=== PATIENT | female | born 1990 | race Caucasian/White ===

== ENCOUNTER 2018-05-16 18:07 | Inpatient (IN) | payer OTHER, MEDICAID ==
[~2018-05-16] VITALS: Ht 149.9 cm; Wt 75.9 kg
[2018-05-16] MEDS ORDERED: PLEASE ENTER ALLERGIES MC SCH (20:00)
[2018-05-16] MEDS ORDERED: PLEASE ENTER HEIGHT AND WEIGHT MC SCH (20:00)
[2018-05-16 20:15] LABS: CREATININE,URINE RANDOM 18.5 mg/dL
[2018-05-16] MEDS ORDERED: ACETAMINOPHEN 325 MG TABLET ONE (20:47)
[2018-05-16] MEDS: ACETAMINOPHEN 325 MG TABLET PO PRN (20:52)
[2018-05-16] MEDS ORDERED: LABETALOL 200 MG TABLET ONE (22:25)
[2018-05-16] MEDS ORDERED: FAMOTIDINE 20 MG TABLET ONE (22:25)
[2018-05-16] MEDS: FAMOTIDINE 20 MG TABLET PO SCH (22:30)
[2018-05-16] MEDS: LABETALOL 200 MG TABLET PO SCH (22:30)
[2018-05-17] MEDS: LACTATED RINGERS 1,000 ML IV PRN ×2 (01:52→15:19)
[2018-05-17] MEDS ORDERED: MAGNESIUM SULF. PMX 20GM/500ML 500 ML IV ONE ×3 (02:42→13:13)
[2018-05-17] MEDS: MAGNESIUM SULF. PMX 20GM/500ML 500 ML IV SCH ×3 (02:47→18:00)
[2018-05-17 03:14] LABS: ALANINE AMINOTRANSFERASE 10 U/L (12-78); ALBUMIN 2.3 g/dL (3.4-5.0); ANION GAP 11 mmol/L (5-15); CALCIUM 7.3 mg/dL (8.5-10.1); CHLORIDE 105 mmol/L (98-107); CREATININE 0.64 mg/dL (0.55-1.02)
[2018-05-17 03:17] LABS: ALKALINE PHOSPHATASE 171 U/L (45-117); BILIRUBIN,TOTAL 0.2 mg/dL (0.2-1.0); TOTAL PROTEIN 6.5 g/dL (6.4-8.2)
[2018-05-17 04:03] LABS: BASOPHILS # (AUTO) 0.11 x10^3/uL (0-0.1); BASOPHILS % (AUTO) 1 % (0-1); EOSINOPHILS # (AUTO) 0.05 x10^3/uL (0-0.4); EOSINOPHILS % (AUTO) 0 % (1-7); LYMPHOCYTES # (AUTO) 1.49 x10^3/uL (1-3.4); LYMPHOCYTES % (AUTO) 9 % (22-44); MD SCAN; MEAN CORPUSCULAR HEMOGLOBIN 29.6 pg (27.0-34.8); MEAN CORPUSCULAR HGB CONC 33.1 g/dL (32.4-35.8); MEAN CORPUSCULAR VOLUME 89.4 fL (80-100); MEAN PLATELET VOLUME 12.9 fL (7.4-10.4); MONOCYTES # (AUTO) 0.15 x10^3/uL (0.2-0.8); MONOCYTES % (AUTO) 1 % (2-9); NEUTROPHILS # (AUTO) 14.89 x10^3/uL (1.8-6.8); NEUTROPHILS % (AUTO) 89 % (42-75); PLATELET COUNT 230 x10^3/uL (130-400); RED CELL DISTRIBUTION WIDTH 14.6 % (9.6-15.2)
[2018-05-17 07:15] VITALS: BP 149/86
[2018-05-17] MEDS ORDERED: LABETALOL 200 MG TABLET ONE (08:35)
[2018-05-17] MEDS ORDERED: FAMOTIDINE 20 MG TABLET ONE ×2 (08:37→21:06)
[2018-05-17] MEDS: FAMOTIDINE 20 MG TABLET PO SCH ×2 (08:41→21:08)
[2018-05-17] MEDS: LABETALOL 200 MG TABLET PO SCH (09:42)
[2018-05-17] MEDS ORDERED: [UNRECOGNIZED DRUG - OTHER] IM SCH (12:00)
[2018-05-17] MEDS ORDERED: BETAMETHASONE 6 MG/ML, 5ML IM ONE (16:18)
[2018-05-17] MEDS ORDERED: BETAMETHASONE 6 MG/ML, 5ML IM SCH (16:30)
[2018-05-17] MEDS ORDERED: [UNRECOGNIZED DRUG - OTHER] IM SCH (17:00)
[2018-05-17] MEDS ORDERED: MAGNESIUM SULF. PMX 20GM/500ML 500 ML IV SCH (19:32)
[2018-05-17] MEDS ORDERED: ZOLPIDEM 5MG TABLET ONE (21:06)
[2018-05-17] MEDS: LABETALOL 300 MG TABLET PO SCH (21:09)
[2018-05-17] MEDS: ZOLPIDEM 5MG TABLET PO SCH (21:09)
[2018-05-18] MEDS ORDERED: hydrALAzine 20 MG/ML, 1ML ONE (01:52)
[2018-05-18] MEDS: hydrALAzine 20 MG/ML, 1ML IV PRN (01:56)
[2018-05-18] MEDS ORDERED: MAGNESIUM SULF. PMX 20GM/500ML 500 ML IV ONE ×2 (02:01→15:07)
[2018-05-18] MEDS: MAGNESIUM SULF. PMX 20GM/500ML 500 ML IV SCH ×2 (02:15→15:10)
[2018-05-18 06:10] LABS: ALBUMIN 2.2 g/dL (3.4-5.0); ANION GAP 11 mmol/L (5-15); CHLORIDE 107 mmol/L (98-107)
[2018-05-18 06:13] LABS: ALANINE AMINOTRANSFERASE 11 U/L (12-78); ALKALINE PHOSPHATASE 154 U/L (45-117); BILIRUBIN,TOTAL 0.4 mg/dL (0.2-1.0); CREATININE 0.51 mg/dL (0.55-1.02); TOTAL PROTEIN 6.1 g/dL (6.4-8.2)
[2018-05-18 06:22] LABS: MD YES; MEAN CORPUSCULAR HEMOGLOBIN 30.1 pg (27.0-34.8); MEAN PLATELET VOLUME 13.3 fL (7.4-10.4); PLATELET COUNT 230 x10^3/uL (130-400); RED BLOOD COUNT 3.87 x10^6/uL (3.82-5.3)
[2018-05-18 06:24] LABS: BAND#(MANUAL) 1.32 x10^3/uL; BANDS%(MANUAL) 4 % (0-7); LYMPH#(MANUAL) 1.65 x10^3/uL (1-3.4); LYMPHS% (MANUAL) 5 % (22-44); METAMYELOCYTES# (MANUAL) 0.33 x10^3/uL (0-0); METAMYELOCYTES% (MANUAL) 1 % (0-1); MONOS#(MANUAL) 0.99 x10^3/uL (0.3-2.7); MONOS% (MANUAL) 3 % (2-9); NRBC % (MANUAL) 1 % (0-1); SEG#(MANUAL) 28.71 x10^3/uL (1.8-6.8); SEGS% (MANUAL) 87 % (42-75)
[2018-05-18 06:26] LABS: <PLATELET ESTIMATE> ADEQUATE; ANISOCYTOSIS 1+; LARGE PLATELETS 1+
[2018-05-18] MEDS: LABETALOL 300 MG TABLET PO SCH ×2 (10:55→20:31)
[2018-05-18] MEDS: LACTATED RINGERS 1,000 ML IV PRN ×2 (11:02→23:33)
[2018-05-18] MEDS ORDERED: FAMOTIDINE 20 MG TABLET ONE ×2 (11:05→20:28)
[2018-05-18] MEDS ORDERED: LABETALOL 300 MG TABLET ONE ×2 (11:05→20:28)
[2018-05-18] MEDS: FAMOTIDINE 20 MG TABLET PO SCH ×2 (11:06→20:31)
[2018-05-18] MEDS ORDERED: ZOLPIDEM 5MG TABLET ONE (20:28)
[2018-05-18 20:30] VITALS: BP 153/91
[2018-05-18] MEDS: ZOLPIDEM 5MG TABLET PO SCH (20:31)
[2018-05-18 23:35] VITALS: BP 145/83
[2018-05-19] MEDS ORDERED: ONDANSETRON ODT 4 MG ONE (00:02)
[2018-05-19] MEDS ORDERED: MAGNESIUM SULF. PMX 20GM/500ML 500 ML IV ONE ×2 (02:48→17:33)
[2018-05-19] MEDS: MAGNESIUM SULF. PMX 20GM/500ML 500 ML IV SCH (02:50)
[2018-05-19 05:10] VITALS: BP 139/88
[2018-05-19] MEDS ORDERED: ONDANSETRON ODT 4 MG PO PRN ×2 (06:00)
[2018-05-19] MEDS ORDERED: hydrALAzine 20 MG/ML, 1ML ONE ×3 (07:39→22:27)
[2018-05-19] MEDS ORDERED: LABETALOL 300 MG TABLET ONE (07:40)
[2018-05-19] MEDS ORDERED: ACETAMINOPHEN 325 MG TABLET ONE (07:40)
[2018-05-19] MEDS ORDERED: FAMOTIDINE 20 MG TABLET ONE ×2 (07:40→21:26)
[2018-05-19] MEDS: ACETAMINOPHEN 325 MG TABLET PO PRN (07:42)
[2018-05-19] MEDS: hydrALAzine 20 MG/ML, 1ML IV PRN ×4 (07:44→17:06)
[2018-05-19] MEDS: LABETALOL 300 MG TABLET PO SCH ×2 (08:39→21:06)
[2018-05-19] MEDS: FAMOTIDINE 20 MG TABLET PO SCH ×2 (08:39→21:30)
[2018-05-19] MEDS ORDERED: LABETALOL 100 MG TABLET ONE (09:40)
[2018-05-19] MEDS ORDERED: LORazepam 0.5MG TABLET PO ONE (10:00)
[2018-05-19 10:29] LABS: ALBUMIN 2.2 g/dL (3.4-5.0); ANION GAP 10 mmol/L (5-15); CALCIUM 7.1 mg/dL (8.5-10.1); CHLORIDE 107 mmol/L (98-107)
[2018-05-19 10:33] LABS: CREATININE,URINE RANDOM 35.7 mg/dL
[2018-05-19 10:33] LABS: ALANINE AMINOTRANSFERASE 12 U/L (12-78); ALKALINE PHOSPHATASE 152 U/L (45-117); BILIRUBIN,TOTAL 0.2 mg/dL (0.2-1.0); CREATININE 0.55 mg/dL (0.55-1.02); TOTAL PROTEIN 5.9 g/dL (6.4-8.2)
[2018-05-19 10:37] LABS: MEAN CORPUSCULAR HEMOGLOBIN 29.6 pg (27.0-34.8); MEAN CORPUSCULAR HGB CONC 32.9 g/dL (32.4-35.8); MEAN CORPUSCULAR VOLUME 90.2 fL (80-100); MEAN PLATELET VOLUME 13.3 fL (7.4-10.4); PLATELET COUNT 195 x10^3/uL (130-400); RED BLOOD COUNT 3.73 x10^6/uL (3.82-5.3); RED CELL DISTRIBUTION WIDTH 15.2 % (9.6-15.2)
[2018-05-19 10:50] LABS: MD YES
[2018-05-19 10:52] LABS: BAND#(MANUAL) 0.96 x10^3/uL; BANDS%(MANUAL) 3 % (0-7); EOS#(MANUAL) 0.32 x10^3/uL (0.0-0.4); EOS% (MANUAL) 1 % (1-7); LYMPH#(MANUAL) 4.15 x10^3/uL (1-3.4); LYMPHS% (MANUAL) 13 % (22-44); METAMYELOCYTES# (MANUAL) 0.96 x10^3/uL (0-0); METAMYELOCYTES% (MANUAL) 3 % (0-1); MONOS#(MANUAL) 0.64 x10^3/uL (0.3-2.7); MONOS% (MANUAL) 2 % (2-9); NRBC % (MANUAL) 3 % (0-1); SEG#(MANUAL) 24.88 x10^3/uL (1.8-6.8); SEGS% (MANUAL) 78 % (42-75)
[2018-05-19 10:53] LABS: <PLATELET ESTIMATE> ADEQUATE; ANISOCYTOSIS 1+; LARGE PLATELETS 1+
[2018-05-19] MEDS ORDERED: FUROSEMIDE 20 MG/2 ML ONE ×3 (16:42→23:10)
[2018-05-19] MEDS ORDERED: morphine SULFATE 10 MG/ML, 1ML IVPush ONE (17:00)
[2018-05-19] MEDS ORDERED: MORPHINE SULFATE 4 MG/ML, 1ML IVPush ONE (17:00)
[2018-05-19] MEDS ORDERED: FUROSEMIDE 20 MG/2 ML IV ONE ×3 (17:00→23:10)
[2018-05-19] MEDS ORDERED: MORPHINE SULFATE 4 MG/ML, 1ML ONE (17:01)
[2018-05-19] MEDS ORDERED: METOCLOPRAMIDE 5 MG/ML, 2ML IVPush PRN (17:30)
[2018-05-19] MEDS ORDERED: SODIUM CITRATE/CITRIC ACID 30 ML UDC PO PRN (17:30)
[2018-05-19] MEDS ORDERED: BUTORPHANOL 1 MG/ML, 1ML IVPush PRN ×2 (17:30)
[2018-05-19] MEDS ORDERED: OXYTOCIN 30U/ 0.9% NaCL 500ML 500 ML ONE (17:33)
[2018-05-19] MEDS ORDERED: MAGNESIUM SULF. PMX 20GM/500ML 500 ML IV SCH (18:00)
[2018-05-19] MEDS ORDERED: OXYTOCIN 30U/ 0.9% NaCL 500ML 500 ML IV ONE (18:00)
[2018-05-19] MEDS ORDERED: OXYTOCIN 30U/ 0.9% NaCL 500ML 500 ML IV PRN (18:00)
[2018-05-19] MEDS ORDERED: LACTATED RINGERS 1,000 ML IV SCH (18:30)
[2018-05-19] MEDS ORDERED: D5%-LACTATED RINGERS 1,000 ML IV SCH (18:30)
[2018-05-19 19:30] VITALS: BP 155/80
[2018-05-19] MEDS ORDERED: NEWBORN KIT ONE (20:16)
[2018-05-19] MEDS ORDERED: MISOPROSTOL 200 MCG TABLET ONE (20:17)
[2018-05-19] MEDS ORDERED: LIDOCAINE 1%, 50ML ONE (20:17)
[2018-05-19] MEDS ORDERED: LABETALOL 200 MG TABLET ONE (21:04)
[2018-05-19] MEDS ORDERED: MAGNESIUM SULFATE PMX 4GM/100M 100 ML IVPB ONE (21:30)
[2018-05-19] MEDS ORDERED: BUTORPHANOL 1 MG/ML, 1ML ONE (21:36)
[2018-05-19] MEDS ORDERED: MISOPROSTOL 200 MCG TABLET PR ONE (23:10)
[2018-05-19] MEDS ORDERED: OXYTOCIN 30U/ 0.9% NaCL 500ML 500 ML IV SCH (23:39)
[2018-05-20] MEDS ORDERED: ACETAMINOPHEN 325 MG TABLET PO PRN
[2018-05-20] MEDS ORDERED: OXYTOCIN 10 UNITS/ML, 1ML IM PRN
[2018-05-20] MEDS ORDERED: OXYcodone/APAP 5/325MG TABLET PO PRN ×2
[2018-05-20] MEDS ORDERED: ONDANSETRON 2MG/ML, 2ML IV PRN
[2018-05-20] MEDS ORDERED: FUROSEMIDE 20 MG/2 ML ONE ×4 (00:40→21:12)
[2018-05-20] MEDS ORDERED: FUROSEMIDE 20 MG/2 ML IV ONE (01:00)
[2018-05-20 02:29] LABS: ALBUMIN 2.1 g/dL (3.4-5.0); ANION GAP 9 mmol/L (5-15); CALCIUM 7.6 mg/dL (8.5-10.1); CHLORIDE 102 mmol/L (98-107)
[2018-05-20 02:33] LABS: ALANINE AMINOTRANSFERASE 13 U/L (12-78); ALKALINE PHOSPHATASE 170 U/L (45-117); BILIRUBIN,TOTAL 0.3 mg/dL (0.2-1.0); CREATININE 0.61 mg/dL (0.55-1.02); MD YES; MEAN CORPUSCULAR HEMOGLOBIN 30.1 pg (27.0-34.8); MEAN CORPUSCULAR HGB CONC 33.2 g/dL (32.4-35.8); MEAN CORPUSCULAR VOLUME 90.5 fL (80-100); MEAN PLATELET VOLUME 13.1 fL (7.4-10.4); PLATELET COUNT 199 x10^3/uL (130-400); RED BLOOD COUNT 4.17 x10^6/uL (3.82-5.3); RED CELL DISTRIBUTION WIDTH 15.3 % (9.6-15.2); TOTAL PROTEIN 6.3 g/dL (6.4-8.2)
[2018-05-20 02:34] LABS: BAND#(MANUAL) 1.09 x10^3/uL; BANDS%(MANUAL) 4 % (0-7); LYMPH#(MANUAL) 3.82 x10^3/uL (1-3.4); LYMPHS% (MANUAL) 14 % (22-44); MONOS#(MANUAL) 0.82 x10^3/uL (0.3-2.7); MONOS% (MANUAL) 3 % (2-9); MYELOCYTES# (MANUAL) 0.55 x10^3/uL (0-0); MYELOCYTES% (MANUAL) 2 % (0-0); SEGS% (MANUAL) 77 % (42-75)
[2018-05-20 02:35] LABS: NRBC % (MANUAL) 9 % (0-1); SEG#(MANUAL) 21.29 x10^3/uL (1.8-6.8)
[2018-05-20 02:36] LABS: <PLATELET ESTIMATE> ADEQUATE; ANISOCYTOSIS 1+; LARGE PLATELETS 1+
[2018-05-20] MEDS ORDERED: OXYTOCIN 10 UNITS/ML, 1ML ONE (02:47)
[2018-05-20] MEDS ORDERED: FUROSEMIDE 40 MG/4 ML IV ONE ×2 (03:30→10:00)
[2018-05-20] MEDS: CEFTRIAXONE 1,000 MG in SODIUM CHLORIDE 0.9% 50 ML IV SCH ×2 (06:10→18:00)
[2018-05-20] MEDS ORDERED: LABETALOL 100 MG TABLET ONE (07:57)
[2018-05-20] MEDS ORDERED: LABETALOL 300 MG TABLET ONE (07:57)
[2018-05-20] MEDS ORDERED: MAGNESIUM SULF. PMX 20GM/500ML 500 ML IV ONE (08:01)
[2018-05-20] MEDS: LABETALOL 300 MG TABLET PO SCH ×2 (08:04→19:41)
[2018-05-20 08:52] VITALS: BP 167/94
[2018-05-20] MEDS: FAMOTIDINE 20 MG TABLET PO SCH ×2 (09:00→21:00)
[2018-05-20 12:00] VITALS: BP 137/74
[2018-05-20 13:08] VITALS: BP 143/91
[2018-05-20] MEDS ORDERED: MAGNESIUM SULF. PMX 20GM/500ML 500 ML IV SCH ×2 (18:00)
[2018-05-20] MEDS ORDERED: LABETALOL 200 MG TABLET ONE (19:38)
[2018-05-20 19:41] VITALS: BP 179/95
[2018-05-20 19:45] VITALS: BP 162/91
[2018-05-20 20:45] VITALS: BP 131/76
[2018-05-20] MEDS ORDERED: FUROSEMIDE 20 MG/2 ML IV SCH (21:00)
[2018-05-20] MEDS ORDERED: ACETAMINOPHEN 325 MG TABLET ONE (21:19)
[2018-05-20] MEDS: ACETAMINOPHEN 325 MG TABLET PO PRN (21:21)
[2018-05-21] MEDS: CEFTRIAXONE 1,000 MG in SODIUM CHLORIDE 0.9% 50 ML IV SCH (05:53)
[2018-05-21] MEDS ORDERED: hydrALAzine 20 MG/ML, 1ML ONE ×2 (06:08→07:45)
[2018-05-21 06:12] VITALS: BP 185/92
[2018-05-21] MEDS: hydrALAzine 20 MG/ML, 1ML IV PRN ×2 (06:12→07:48)
[2018-05-21 06:30] VITALS: BP 159/96
[2018-05-21] MEDS ORDERED: hydrALAzine 20 MG/ML, 1ML IV ONE (06:30)
[2018-05-21 07:58] LABS: MEAN CORPUSCULAR HEMOGLOBIN 29.4 pg (27.0-34.8); MEAN CORPUSCULAR HGB CONC 32.9 g/dL (32.4-35.8); MEAN CORPUSCULAR VOLUME 89.4 fL (80-100); MEAN PLATELET VOLUME 12.7 fL (7.4-10.4); PLATELET COUNT 219 x10^3/uL (130-400); RED BLOOD COUNT 3.83 x10^6/uL (3.82-5.3); RED CELL DISTRIBUTION WIDTH 15.2 % (9.6-15.2)
[2018-05-21] MEDS ORDERED: FUROSEMIDE 20 MG TABLET PO SCH (08:00)
[2018-05-21] MEDS ORDERED: DOCUSATE 100 MG CAPSULE ONE (08:01)
[2018-05-21] MEDS ORDERED: ACETAMINOPHEN 325 MG TABLET ONE (08:01)
[2018-05-21] MEDS ORDERED: PRENATAL VIT/IRON/FA 1 EACH TABLET ONE (08:01)
[2018-05-21] MEDS: PRENATAL VIT/IRON/FA 1 EACH TABLET PO SCH ×2 (08:03→09:00)
[2018-05-21] MEDS: DOCUSATE 100 MG CAPSULE PO PRN (08:03)
[2018-05-21] MEDS: ACETAMINOPHEN 325 MG TABLET PO PRN (08:03)
[2018-05-21 08:24] LABS: MD YES
[2018-05-21 08:26] LABS: <PLATELET ESTIMATE> ADEQUATE; ANISOCYTOSIS 1+; BAND#(MANUAL) 0.61 x10^3/uL; BANDS%(MANUAL) 3 % (0-7); EOS% (MANUAL) 1 % (1-7); LARGE PLATELETS 1+; LYMPH#(MANUAL) 2.84 x10^3/uL (1-3.4); LYMPHS% (MANUAL) 14 % (22-44); MONOS#(MANUAL) 1.62 x10^3/uL (0.3-2.7); MONOS% (MANUAL) 8 % (2-9); NRBC % (MANUAL) 5 % (0-1); SEG#(MANUAL) 15.02 x10^3/uL (1.8-6.8); SEGS% (MANUAL) 74 % (42-75)
[2018-05-21] MEDS ORDERED: LABETALOL 200 MG TABLET ONE ×2 (08:55→21:29)
[2018-05-21] MEDS: LABETALOL 300 MG TABLET PO SCH ×2 (08:59→21:31)
[2018-05-21] MEDS: FAMOTIDINE 20 MG TABLET PO SCH (09:00)
[2018-05-21] MEDS ORDERED: FAMOTIDINE 20 MG TABLET PO PRN (16:00)
[2018-05-21 21:15] VITALS: BP 162/107
[2018-05-21 22:10] VITALS: BP 157/93
[2018-05-22] VITALS (7 sets, daily range): BP systolic 133–162; BP diastolic 87–120
[2018-05-22] MEDS ORDERED: LABETALOL 100 MG TABLET ONE (07:58)
[2018-05-22] MEDS: LABETALOL 200 MG TABLET PO SCH ×2 (07:59→21:28)
[2018-05-22] MEDS: LABETALOL 300 MG TABLET PO SCH (07:59)
[2018-05-22] MEDS: PRENATAL VIT/IRON/FA 1 EACH TABLET PO SCH (08:02)
[2018-05-22] MEDS: DOCUSATE 100 MG CAPSULE PO PRN ×2 (08:03→21:28)
[2018-05-22] MEDS ORDERED: niFEDipine ER 30 MG TABLET.ER ONE (15:29)
[2018-05-22] MEDS: niFEDipine ER 30 MG TABLET.ER PO SCH (15:31)
[2018-05-22] MEDS: ACETAMINOPHEN 325 MG TABLET PO PRN (21:28)
[2018-05-23 03:00] VITALS: BP 142/92
[2018-05-23] MEDS: ACETAMINOPHEN 325 MG TABLET PO PRN (03:32)
[2018-05-23 08:19] VITALS: BP 161/101
[2018-05-23] MEDS: PRENATAL VIT/IRON/FA 1 EACH TABLET PO SCH (08:23)
[2018-05-23] MEDS: niFEDipine ER 30 MG TABLET.ER PO SCH (08:23)
[2018-05-23] MEDS: LABETALOL 200 MG TABLET PO SCH (08:23)
[2018-05-23] MEDS: DOCUSATE 100 MG CAPSULE PO PRN (08:24)
[2018-05-23 16:09] VITALS: BP 146/93
[2018-05-23] MEDS ORDERED: LABE200T6 PO (17:50)
[2018-05-23] MEDS ORDERED: NIFE30TA2 PO (17:50)
== END 2018-05-23 18:30 | disposition home or self-care (01) | DRG 774 ==
LOC: LDIP 18:29 → 2NE 05-20 11:57 → 2NW 05-21 16:04
PROVIDERS: ADMIT Obstetrics & Gynecology Maternal & Fetal Medicine; ATTEND Obstetrics & Gynecology Maternal & Fetal Medicine
PROC: 10E0XZZ Delivery of Products of Conception, External Approach (ICD-10-PCS; principal; 2018-05-19)
PROC: 3E033VJ Introduction of Other Hormone into Peripheral Vein, Percutaneous Approach (ICD-10-PCS; 2018-05-19)
DX: O14.14 Severe pre-eclampsia complicating childbirth (principal); O75.4 Other complications of obstetric surgery and procedures; J81.0 Acute pulmonary edema; O13.4 Gestational [pregnancy-induced] hypertension without significant proteinuria, complicating childbirth; O60.23X0 Term delivery with preterm labor, third trimester, not applicable or unspecified; Z90.81 Acquired absence of spleen; Z37.0 Single live birth
CPT/HCPCS: 36415; 71045; 76805; 80053; 81050; 82570; 82803; 83735; 84156; 84550; 85025; 86850; 86900; 88305; 99285; J0696; J0702; J1940; Q0162; J0360; J0595; J2270; J2590; J3475; J7120